=== PATIENT | female | born 1955 | race American Indian/Alaskan Native ===

== ENCOUNTER 2021-01-05 10:50 | Outpatient (CLI) | payer OTHER, MEDICARE ==
--- NOTE | 2021-01-06 09:29 | Mammography Report ---
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 66 years Female COMPARISON: None available. LUMBAR SPINE, L1-L4: - Bone mineral density (BMD) = 1.214 g/cm2. - T-score = 0.6 - Z-score = 2.6 Change (%) since most recent prior (if available): None available. RIGHT HIP, : Not evaluated. LEFT HIP, NECK : - Bone mineral density (BMD) = 0.79 g/cm2. - T-score = -1.1 - Z-score = 0.2 Change (%) since most recent prior (if available): None available. IMPRESSION: 1. WHO Classification: Osteopenia. Fracture Risk: Increased. Note: 10-Year Fracture Risk (FRAX) not reported. This DEXA unit lacks FRAX functionality. BMD Reporting Guidelines (ISCD, 2015) BMD Reporting in Postmenopausal Women and in Men Age 50 and Older - T-scores are preferred. - The WHO densitometric classification is applicable. BMD Reporting in Females Prior to Menopause and in Males Younger Than Age 50 - Z-scores, not T-scores, are preferred. This is particularly important in children. - A Z-score of -2.0 or lower is defined as below the expected range for age, and a Z-score above -2.0 is within the expected range for age. - Osteoporosis cannot be diagnosed in men under age 50 on the basis of BMD alone. - The WHO diagnostic criteria may be applied to women in the menopausal transition. http://www.iscd.org/official-positions/9526-irfd-epqfcdhf-positions-adult/ Signer Name: Catarino Valentine MD Signed: 01/06/2021 9:24 AM Workstation Name: [id number]
== END 2021-01-05 10:51 | disposition home or self-care (01) ==
LOC: SPVWC 10:50
PROVIDERS: ATTEND Nurse Practitioner Family
DX: M85.88 Other specified disorders of bone density and structure, other site (principal); N95.1 Menopausal and female climacteric states
CPT/HCPCS: 77080